=== PATIENT | female | born 1985 | race African-American/Black ===

== ENCOUNTER 2024-06-16 13:31 | Emergency (ER) | payer MEDICAID ==
[~2024-06-16] VITALS: Ht 167.6 cm; Wt 113.4 kg
[2024-06-16 13:52] VITALS: BP_SYST 151; PULSE 106; RESP 18; TEMP 97.9; O2SAT 97
[2024-06-16 15:25] LABS: BASOPHILS # (AUTO) 0.1 K/uL (0.0-0.2); BASOPHILS % (AUTO) 0.8 % (0.0-2.0); EOSINOPHILS # (AUTO) 0.4 K/uL (0.0-0.4); HEMATOCRIT 39.5 % (36-48); LYMPHOCYTES # (AUTO) 2.9 K/uL (1.0-5.5); LYMPHOCYTES % (AUTO) 20.6 % (20.5-51.5); MEAN CORPUSCULAR HEMOGLOBIN 28 pg (27-31); MEAN CORPUSCULAR HGB CONC 33 % (32-36); MEAN CORPUSCULAR VOLUME 84 fL (79.0-98.0); MONOCYTES # (AUTO) 0.8 K/uL (0.0-1.0); MONOCYTES % (AUTO) 5.6 % (1.7-9.3); PLATELET COUNT (AUTO) 220 K/uL (130-430); RED BLOOD CELL COUNT(AUTO) 4.73 MIL/uL (4.2-6.2); RED CELL DISTRIBUTION WIDTH 14.3 % (9.0-15.0); WHITE BLOOD COUNT (AUTO) 14.2 K/uL (4.8-10.8)
[2024-06-16 16:04] LABS: ALANINE AMINOTRANSFERASE 24 U/L (12-78); AMYLASE 49 U/L (0-100); ANION GAP 9 (5-15); ASPARTATE AMINOTRANSFERASE 18 U/L (10-37); BILIRUBIN,DIRECT 0.1 mg/dL (0.0-0.3); CALCIUM 8.8 mg/dL (8.4-11.0); CARBON DIOXIDE 28 mmol/L (23-29); CHLORIDE 104 mmol/L (98-107); CREATININE 0.79 mg/dL (0.55-1.30); GFR AFRICAN AMERICAN 105 mL/min (>90); GLUCOSE 218 mg/dL (74-106); LIPASE 24 U/L (16-77); POTASSIUM 3.9 mmol/L (3.5-5.1); SODIUM SERUM 141 mmol/L (136-145); TOTAL BILIRUBIN 0.1 mg/dL (0.0-1.0); TOTAL PROTEIN, SERUM 6.9 g/dL (6.4-8.3); UREA NITROGEN, BLOOD 10 mg/dL (8-21)
[2024-06-16 16:06] LABS: GFR NON AFRICAN-AMERICAN 87 mL/min (>90)
[2024-06-16] MEDS ORDERED: NPH,100V2 SQ ×2 (16:21)
[2024-06-16 16:30] VITALS: BP_SYST 151; PULSE 106; RESP 18; TEMP 97.9; O2SAT 97
[2024-06-16 17:06] LABS: HEMOGLOBIN A1C 10.71 % (<5.7)
[2024-06-16 17:37] LABS: ACETONE, SERUM NEGATIVE (NEGATIVE)
== END 2024-06-16 16:30 | disposition home or self-care (01) ==
LOC: SED 13:31
DX: E11.65 Type 2 diabetes mellitus with hyperglycemia (principal); Z88.8 Allergy status to other drugs, medicaments and biological substances
CPT/HCPCS: 36415; 80048; 80076; 82009; 82150; 82948; 83037; 83605; 83690; 85025; 99283